=== PATIENT | male | born 1965 | race Caucasian/White ===

== ENCOUNTER 2016-06-06 12:02 | Outpatient (CLI) | payer OTHER ==
[~2016-06-06] VITALS: Ht 182.9 cm; Wt 95.3 kg
[~2016-06-06 12:02] MED LIST: BUDE10.22 IH
--- OUTSIDE RECORDS SUMMARY | 2016-06-06 12:05 | XMS REPORT | Continuity of Care Document ---
Author Author [facility] Organization [facility] Address Unknown Phone Unavailable Care Team Providers Care Carrier Driver Name Role Phone MAX BARKLEY MD PCP Insurance Providers Payer Name Policy Number Subscriber Name Relationship [facility] [id number] Jona Poe 18 Self / Same As Patient Advance Directives Directive Response Recorded Date/Time Advance Directives No 01/01/16 2:47pm Health Care Power of Food And Beverage Analyst No 01/01/16 2:47pm Organ Donor No 01/01/16 2:47pm Resuscitation Status Full Code 01/01/16 2:47pm Problems No problem information available. Medications Current Home Medications Medication Dose Units Route Directions Days/Qty Instructions Start Date Budesonide/Formoterol Fumarate 10.2 Gm 2 Puff Inhalation Daily 12/31 Social History Social History Problem Response Recorded Date/Time Hx Sexually Transmitted Disorders No 05/30/2008 6:25am Hospital Discharge Instructions No hospital discharge instructions. Plan of Care Discharge Date 01/01/16 2:55pm Prescriptions See Medication Section Functional Status No functional status results. Allergies, Adverse Reactions, Alerts No known allergies. Immunizations No immunization records. Vital Signs Acute Vital Signs Vital Response Date/Time Height (Feet) 6 feet 01/01/2016 2:47pm Height (Inches) 0.00 inches 01/01/2016 2:47pm Height (Calculated Centimeters) 182.232623 cm 01/01/2016 2:47pm Weight (Pounds) 200 pounds 01/01/2016 2:47pm Weight (Ounces) 0.0 oz 01/01/2016 2:47pm Weight (Calculated Grams) 61074.475 gm 01/01/2016 2:47pm Weight (Calculated Kilograms) 90.950179 kilograms 01/01/2016 2:47pm Calculated BMI 27.12 01/01/2016 2:47pm Results No known relevant diagnostic tests, laboratory data and/or discharge summary. Procedures No known history of procedures. Encounters Encounter Location Arrival/Admit Date Discharge/Depart Date Attending Provider Departed Clinic [facility] 01/01/16 6:04am 01/01/16 2: 55pm DESI CALVILLO MD Registered Clinic [facility] 12/20/15 10:03am MAX BARKLEY MD
[2016-06-06 12:10] VITALS: BP 138/88
[2016-06-06] MEDS ORDERED: ETOD400T PO (12:14)
[2016-06-06] MEDS ORDERED: LOSA50TA36 PO (12:14)
== END 2016-06-06 12:20 | disposition home or self-care (01) ==
LOC: PREOP 12:02
PROVIDERS: ATTEND Orthopaedic Surgery
DX: Z01.818 Encounter for other preprocedural examination (principal); Z11.2 Encounter for screening for other bacterial diseases; S83.282A Other tear of lateral meniscus, current injury, left knee, initial encounter; M94.262 Chondromalacia, left knee; X58.XXXA Exposure to other specified factors, initial encounter; Y92.019 Unspecified place in single-family (private) house as the place of occurrence of the external cause; Y99.8 Other external cause status
CPT/HCPCS: 87081

== ENCOUNTER 2016-06-12 06:24 | Day surgery (SDC) | payer OTHER ==
[~2016-06-12] VITALS: Ht 182.9 cm; Wt 95.3 kg
[~2016-06-12 06:24] MED LIST changes: +ETOD400T PO; +LOSA50TA36 PO
--- OUTSIDE RECORDS SUMMARY | 2016-06-12 06:27 | XMS REPORT | Continuity of Care Document ---
Author Author [facility] Organization [facility] Address Unknown Phone Unavailable Care Team Providers Care Mud Mixer Helper Name Role Phone MAX BARKLEY MD PCP Insurance Providers Payer Name Policy Number Subscriber Name Relationship [employer] [facility] [id number] Jona Poe 18 Self / Same As Patient Advance Directives Directive Response Recorded Date/Time Advance Directives No 06/06/16 12:10pm Health Care Power of Fixed Route Bus Operator No 06/06/16 12:10pm Organ Donor No 06/06/16 12:10pm Resuscitation Status Full Code 06/06/16 12:10pm Problems No problem information available. Medications Current Home Medications Medication Dose Units Route Directions Days/Qty Instructions Start Date Budesonide/Formoterol Fumarate 10.2 Gm 2 Puff Inhalation Daily as needed for Shortness Of Breath 01/01/16 Losartan Potassium 50 Mg 50 Mg Oral Daily 06/06/16 Etodolac 400 Mg 400 Mg Oral Daily as needed for Joint Swelling 06/06 Social History Social History Problem Response Recorded Date/Time Alcohol Use Occasionally Uses 06/06/2016 12:10pm Recreational Drug Use No 06/06/2016 12:10pm Recent Foreign Travel No 06/06/2016 12:10pm Recent Infectious Disease Exposure No 06/06/2016 12:10pm Sexually Transmitted Disease No 06/06/2016 12:10pm Smoking Status Never a Smoker 06/06/2016 12:10pm Recent Hopitalizations No 06/06/2016 12:10pm Sexually Transmitted Disease No 06/06/2016 12:10pm Hx Sexually Transmitted Disorders No 05/30/2008 6:25am Query Response Start Date Stop Date Smoking Status Never a Smoker Hospital Discharge Instructions No hospital discharge instructions. Plan of Care Discharge Date 06/06/16 12:20pm Prescriptions See Medication Section Functional Status No functional status results. Allergies, Adverse Reactions, Alerts No known allergies. Immunizations No immunization records. Vital Signs Acute Vital Signs Vital Response Date/Time Pulse Rate (adult) 78 bpm (60 - 90) 06/06/2016 12:10pm O2 Sat by Pulse Oximetry 99 % (88 - 100) 06/06/2016 12:10pm Blood Pressure 138/88 mm Hg 06/06/2016 12:10pm Blood Pressure Mean 105 mm Hg 06/06/2016 12:10pm Pain Numeric Pain Scale 2 06/06/2016 12:10pm Height (Feet) 6 feet 06/06/2016 12:10pm Height (Inches) 0.00 inches 06/06/2016 12:10pm Height (Calculated Centimeters) 182.672784 cm 06/06/2016 12:10pm Weight (Pounds) 210 pounds 06/06/2016 12:10pm Weight (Ounces) 0.0 oz 06/06/2016 12:10pm Weight (Calculated Grams) 72851.40 gm 06/06/2016 12:10pm Weight (Calculated Kilograms) 95.539973 kilograms 06/06/2016 12:10pm Calculated BMI 28.5 06/06/2016 12:10pm Results No known relevant diagnostic tests, laboratory data and/or discharge summary. Procedures No known history of procedures. Encounters Encounter Location Arrival/Admit Date Discharge/Depart Date Attending Provider Departed Clinic [facility] 06/06/16 12:02pm 06/06/16 12: 20pm CHARLIE JERONIMO MD
--- OUTSIDE RECORDS SUMMARY | 2016-06-12 06:27 | XMS REPORT | Continuity of Care Document ---
Author Author [facility] Organization [facility] Address Unknown Phone Unavailable Care Team Providers Care Ampoule Filler Name Role Phone MAX BARKLEY MD PCP Insurance Providers Payer Name Policy Number Subscriber Name Relationship [employer] [place] [id number] Jona Poe 18 Self / Same As Patient Advance Directives Directive Response Recorded Date/Time Advance Directives No 06/06/16 12:10pm Health Care Power of Production Consultant No 06/06/16 12:10pm Organ Donor No 06/06/16 [...] 0.00 inches 06/06/2016 12:10pm Height (Calculated Centimeters) 182.710873 cm 06/06/2016 12:10pm Weight (Pounds) 210 pounds 06/06/2016 12:10pm Weight (Ounces) 0.0 oz 06/06/2016 12:10pm Weight (Calculated Grams) 33843.40 gm 06/06/2016 12:10pm Weight (Calculated Kilograms) 95.468069 kilograms 06/06/2016 12:10pm Calculated BMI 28.5 06/06/2016 12:10pm Results No known relevant diagnostic tests, laboratory data and/or discharge summary. Procedures No known history of procedures. Encounters Encounter Location Arrival/Admit Date Discharge/Depart Date Attending Provider Departed Clinic [facility] 06/06/16 12:02pm 06/06/16 12: 20pm CHARLIE JERONIMO MD
[2016-06-12] MEDS ORDERED: ceFAZolin 1,000 MG (ANCEF) VIAL ONE (06:41)
[2016-06-12] MEDS ORDERED: NS (IVPB) 50 ML ONE (06:41)
[2016-06-12] MEDS ORDERED: CATHETER FLUSH 10 ML SYR IV PRN (06:45)
[2016-06-12] MEDS ORDERED: ceFAZolin 1 GM/NS 50 ML IVPB IV ONE ×2 (06:45)
[2016-06-12] MEDS ORDERED: MIDAZOLAM 2 MG/2 ML (VERSED) VIAL ONE (06:57)
[2016-06-12] MEDS ORDERED: proPOfol 200 MG/20 ML (DIPRIVAN) VIAL IV ONE (06:57)
[2016-06-12] MEDS ORDERED: fentaNYL INJECTION 100 MCG/2 ML AMP ONE (06:57)
[2016-06-12] MEDS ORDERED: DEXAMETHASONE PF 10 MG/ML (DECADRON) VIAL ONE (06:57)
[2016-06-12] MEDS ORDERED: ONDANSETRON 4 MG/2 ML (SDV) Z0FRAN ONE (06:57)
[2016-06-12] MEDS ORDERED: LIDOCAINE PF 2% 10 ML (XYLOCAINE) AMP ONE (06:57)
[2016-06-12] MEDS ORDERED: LACTATED RINGERS 1,000 ML IV ONE ×2 (06:59→08:57)
[2016-06-12] MEDS ORDERED: RT-ALBUINH IH (07:02)
[2016-06-12 07:08] VITALS: BP 136/98
--- NOTE | 2016-06-12 07:13 | Progress Note-Pre Operative ---
Pre-Operative Progress Note H&P Reviewed The H&P was reviewed, patient examined and no changes noted. 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
--- NOTE | 2016-06-12 07:14 | Progress Note-Post Operative ---
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
--- NOTE | 2016-06-12 07:27 | HISTORY AND PHYSICAL ---
DATE OF ADMISSION: 06/12/2016 This will be for outpatient surgery for left knee arthroscopy. HISTORY: The patient is a 50-year-old gentleman who injured his left knee with a twisting injury on . He felt and heard a pop. He noticed swelling night. The following morning he fell down the stairs because his knee gave way. He reports that he has a mild knee pain prior to this since but since then has had catching, popping and snapping. He reports continued swelling. He reports functional impairment. He has tried a home exercise, anti-inflammatories, activity modifications without relief. He denies back pain and paresthesias. REVIEW OF SYSTEMS: No chest pain, no shortness of breath. No dysuria. PAST MEDICAL HISTORY: 1. Hypertension. 2. Back pain. PAST SURGICAL HISTORY: 1. Hiatal hernia. 2. Herniorrhaphy. SOCIAL HISTORY: The patient denies alcohol and tobacco use. PRIMARY CARE PROVIDER: Dr. Ronquillo FAMILY HISTORY: Significant for cancer. MEDICATIONS: 1. Losartan. 2. Hydrocodone. 3. Etodolac. ALLERGIES: Ragweed. RADIOGRAPHS: Reveal no evidence of fracture or dislocation. PHYSICAL EXAMINATION: The patient is well-developed, well-nourished, in no acute distress. HEENT: Normocephalic, atraumatic. Pupils are equal, round, and reactive light, oropharynx is clear. NECK: Supple with no lymphadenopathy. LUNGS: Clear to auscultation bilaterally. HEART: Regular rate and rhythm. ABDOMEN: Soft, nontender, nondistended. EXTREMITY EXAM: The left knee demonstrates tenderness over his lateral joint line. He has pain laterally with Dakota's. Negative Enma. Negative anterior and posterior drawer. No varus valgus laxity and a negative pivot shift. IMPRESSION: Left knee lateral meniscal tear. PLAN: Left knee arthroscopy, partial lateral meniscectomy and chondroplasty. The risks, benefits, options, ramifications and recovery were discussed at length with the patient. He understands and wishes to proceed. Job ID: [id number] Dictated Date: 06/04/2016 16:34:00 Supply Chain Manager Date: 06/05/2016 07:53:07/enrique
[2016-06-12] MEDS ORDERED: HYDROcodone/APAP 10 MG/325 MG (LORTAB) TAB PO PRN (07:30)
[2016-06-12] MEDS ORDERED: morphine PF (DURAMORPH) 10 MG/10 ML AMP ONE (07:36)
[2016-06-12] MEDS ORDERED: BUPIVACAINE 0.25% 30 ML (SENSORCAINE) VIAL ONE (07:36)
[2016-06-12] MEDS: LACTATED RINGERS 1,000 ML IV PRN ×2 (07:55→09:09)
[2016-06-12] MEDS ORDERED: SEVOFLURANE (ULTANE) 15 ML INHAL SOLN ONE ×3 (08:32→08:49)
--- NOTE | 2016-06-12 08:52 | Progress Note-Post Operative ---
Post-Operative Progess Note Network Architect none Pre-Operative Diagnosis Left Knee Lateral Meniscal Tear and Chondromalacia Post-Operative Diagnosis left knee latear meniscal tear and chondromalacia of the patella Post-Op Procedure Note Date of Procedure: Jun 12, 2016 Name of Procedure: left knee arthroscopic partial lateral meniscectomy and chondroplasty of the patella Anesthesia Type GETA Estimated blood loss (mL): minimal Packing: none Specimen(s) collected none CHARLIE JERONIMO MD Jun 12, 2016 08:52
[2016-06-12] MEDS ORDERED: MEPERIDINE (DEMEROL) INJ 50 MG/ML IVP PRN (09:00)
[2016-06-12] MEDS ORDERED: morphine INJ 10 MG/ML 1ML (SYR OR VIAL) IVP PRN (09:00)
[2016-06-12] MEDS ORDERED: ONDANSETRON 4 MG/2 ML (SDV) Z0FRAN IVP PRN (09:00)
[2016-06-12 09:45] VITALS: BP 129/87
[2016-06-12 10:15] VITALS: BP 125/90
[2016-06-12] MEDS ORDERED: HYDR-3820 PO (10:25)
[2016-06-12 10:45] VITALS: BP 129/89
--- NOTE | 2016-06-12 11:09 | Physical Therapy Ortho Eval ---
PT Orthopedic Evaluation Type of Surgery Knee Scope left knee Prior Level of Function Current Living Status: Spouse Locomotion (Upon Admit): Independent Established Durable Medical Eq: Crutches Subjective Subjective Patient in bed pre tx, agrees to PT, states he has pain of 2/10 with activity, none at rest. Entry Into Home: Level Entry Other Obstacles: Patient lives in a 2 story home and has to go upstairs to his bedroom. Objective Objective Patient has AROM of the left knee from +2 extension to 90 flexion. He has no complaints of numbness or tingling. Transfer Transfers (B, C, W/C) (FIM): 5 Gait Gait Assistive Device: Crutches Weight Bearing Restriction: Weight Bearing/Tolerated Location Restriction: L LE Gait (FIM): 5 Distance: 150' Gait Level of Assist: 5 Summary/Comments Patient has used crutches before and uses them appropriately. Treatment Rendered Treatment: Therapeutic Exercises, Gait Train, Step Train Exercise Instruction: Quad Sets, Heel Slides, Ankle Pumps Patient went up and down 1 step using crutches withSBA. Assessment/Goals Goal Time Frame: 1 Visit Plan Treatment Plan: Discharge PT/Family Agrees to Plan: Yes Time Time In: 1040 Time Out: 1056 Total Billed Treatment Time: 16 Billed Treatment Time 1 visit EVL 16 min PT/OT Therapy GCodes Therapy Functional Limitation: Physical Therapy Test(s)/Tool used to determine: Level of Assistance Scale Functional Limitation-Current Charge Code: MOBCUR Modifier: CI Functional Limitation-Goal Charge Code: MOBGOAL Modifier: CI Functional Limitation-D/C Charge Codes: MOBDC Modifier: CI BRAEDEN AVINA PT Jun 12, 2016 11:09
--- NOTE | 2016-06-12 13:33 | OPERATIVE REPORT ---
PROCEDURE PHYSICIAN: CHARLIE JERONIMO DATE OF PROCEDURE: 06/12/2016 PREOPERATIVE DIAGNOSIS: 1. Left knee lateral meniscal tear. 2. Left knee chondromalacia of the patella. POSTOPERATIVE DIAGNOSIS: 1. Left knee lateral meniscal tear. 2. Left knee chondromalacia of the patella. PROCEDURE: 1. Left knee arthroscopic partial lateral meniscectomy. 2. Left knee arthroscopic chondroplasty of the patella. SURGEON: María ANESTHESIA: General endotracheal by Shaun Mayo CRNA. TOURNIQUET TIME: Nonapplicable ESTIMATED BLOOD LOSS: Minimal. DRAINS: None. COMPLICATIONS: None. POSTOPERATIVE PLAN: Routine arthroscopy protocol. The patient was transferred to the recovery room, awake, in stable condition. STATEMENT OF MEDICAL NECESSITY: The patient is a 50-year-old gentleman who injured his left knee 2 months ago. He felt and heard a pop and since then he has had continued pain in his knee. He had a large effusion. He is tender along his lateral joint line. It was felt he likely had an lateral meniscal tear and due to failure to improve with conservative measures, the patient elected to proceed with surgical intervention. Examination under anesthesia revealed range of motion of 0/0/140. Negative Enma, negative posterior drawer. No varus valgus laxity. Negative pivot shift. Arthroscopic findings: The patella demonstrated grade 2 chondral flap centrally in a 10 x 10 area. The trochlea demonstrated no gross chondral abnormalities. The medial and lateral gutters were clear. The medial compartment demonstrated no meniscal or chondral pathology. The ACL and PCL were intact. The lateral compartment demonstrated a horizontal cleavage tear of the posterior horn/body junction extending into the body involving approximately 1/3rd of the posterior horn and body of the meniscus. No significant chondral pathology was noted. PROCEDURE: After risks and benefits of procedure were discussed and questions were answered. Informed consent was signed and placed on chart. The operative site was confirmed in the preoperative holding area and initialed by the surgeon. The patient was then transported to the operating room where after adequate levels of general endotracheal anesthetic were obtained, a timeout was called confirming the operative site. Examination under anesthesia was performed with the above findings noted. The left lower extremity was prepped and draped in the usual sterile fashion. The knee was injected with 60 mL of fluid and a standard inferolateral portal was placed for the arthroscope and inflow cannula. A diagnostic arthroscopy was carried out with the above findings noted. The unstable chondral flaps on the patella were debrided with a shaver back to a stable edge. The scope was redirected lateral compartment where the lateral meniscus was debrided with a shaver and biter removing approximately 1/3rd of the posterior horn and body; this was carefully probed with no further tearing or instability noted. The knee was copiously irrigated. Port sites closed with 3-0 nylon in an interrupted fashion. The knee was injected with Duramorph. Port sites were infiltrated with plain Marcaine. A soft dressing applied. The patient transported to the recovery room, awake, in stable condition. Job ID: [id number] Dictated Date: 06/12/2016 08:53:02 Aircraft Load Controller Date: 06/12/2016 13:24:36 / darline
== END 2016-06-12 11:05 | disposition home or self-care (01) ==
LOC: SDC 06:24
PROVIDERS: ATTEND Orthopaedic Surgery
DX: S83.282A Other tear of lateral meniscus, current injury, left knee, initial encounter (principal); M94.262 Chondromalacia, left knee; X58.XXXA Exposure to other specified factors, initial encounter; Y99.8 Other external cause status; I10 Essential (primary) hypertension

== ENCOUNTER → 2018-11-30 | Outpatient (CLI) | payer OTHER ==
[~2018-11-30] MED LIST changes: +HYDR-3820 PO; -LOSA50TA36 PO; +LOSA50TA63 PO; +RT-ALBUINH IH
[2018-11-30 09:56] LABS: BASOPHILS % (AUTO) 1 % (0-10); EOSINOPHILS # (AUTO) 0.3 10^3/uL (0.0-0.3); EOSINOPHILS % (AUTO) 4 % (0-10); HEMATOCRIT 43 % (40-54); HEMOGLOBIN 14.4 G/DL (13.3-17.7); LYMPHOCYTES # (AUTO) 2.3 X 10^3 (1.0-4.0); LYMPHOCYTES % (AUTO) 32 % (12-44); MEAN CORPUSCULAR HEMOGLOBIN 29 PG (25-34); MEAN CORPUSCULAR HGB CONC 34 G/DL (32-36); MEAN CORPUSCULAR VOLUME 86 FL (80-99); MEAN PLATELET VOLUME 9.8 FL (7.4-10.4); MONOCYTES # (AUTO) 0.7 X 10^3 (0.0-1.0); MONOCYTES % (AUTO) 9 % (0-12); NEUTROPHILS # (AUTO) 3.8 X 10^3 (1.8-7.8); NEUTROPHILS % (AUTO) 54 % (42-75); PLATELET COUNT 288 10^3/uL (130-400); RED CELL DISTRIBUTION WIDTH 13.8 % (10.0-14.5); WHITE BLOOD COUNT 7.1 10^3/uL (4.3-11.0)
--- NOTE | 2018-11-30 10:31 | Diagnostic Imaging Report ---
REASON FOR EXAM: ABD PAIN, ACUTE, LEFT LOWER QUADRANT COMPARISON: None TECHNIQUE: frontal supine and upright views of the abdomen FINDINGS: The bowel gas pattern is nondistended. No large collection of free intraperitoneal air is seen. Scattered small amounts of gas and fecal material are present in the colon. No abnormal extraosseous calcifications are present. Multiple small radiopaque foreign bodies are seen overlying the left lower quadrant and left pelvis. The osseous structures are age-appropriate. IMPRESSION: No evidence of bowel obstruction or large collection of free intraperitoneal air. Report was called to Chelle Ayala by celestino at 10:30 am. Dictated by: Dictated on workstation # [id number]
== END ==
LOC: LAB 09:37
PROVIDERS: ATTEND Nurse Practitioner Family
DX: R10.32 Left lower quadrant pain (principal)
CPT/HCPCS: 36415; 74019; 85025

== ENCOUNTER 2020-01-31 05:32 | Outpatient (RCR) | payer OTHER ==
[~2020-01-31] VITALS: Ht 180.3 cm; Wt 91.4 kg
[~2020-01-31 05:32] MED LIST changes: +ACHYD1T PO; +ASPI-999 PO; +AZIL40TA PO; +FEXO180T84 PO; -HYDR-3820 PO
== END 2020-01-31 14:46 | disposition home or self-care (01) ==
LOC: PREOP 05:32
PROVIDERS: ATTEND Surgery
DX: Z01.812 Encounter for preprocedural laboratory examination (principal); Z20.828 Contact with and (suspected) exposure to other viral communicable diseases
CPT/HCPCS: 87635